=== PATIENT | female | born 1990 | race Caucasian/White ===

== ENCOUNTER 2018-10-03 12:49 | Emergency (ER) | payer MEDICAID, SELFPAY ==
[2018-10-03 13:01] VITALS: BP 138/91; PULSE 90; RESP 16; TEMP 36.6; O2SAT 98
--- NOTE | 2018-10-03 13:53 | W.ED.GENAD ---
Discharge Plan Disposition Patient Disposition: HOME Condition: Good Discharge Details Chief Complaint: DentalOral Clinical Impression: Abscess, periapical Primary Care Provider: Arnel Stewart ED Provider: Mike Yang Home Meds and New Rx's Prescriptions: New clindamycin HCl 150 mg capsule 450 mg PO TID 10 Days Qty: 90 RF: 0 acetaminophen [Mapap Extra Strength] 500 MG tablet 1,000 mg PO Q6H 5 Days Qty: 60 RF: 0 ibuprofen [Motrin IB] 200 MG tablet 600 mg PO Q6H 5 Days Qty: 60 RF: 0 Continued hydrocodone-acetaminophen 10-325 mg Tablet 1 tab PO Q4H PRN PRNRF: 0 Discontinued levofloxacin 750 mg Tablet 1 mg QDAY RF: 0 amoxicillin-pot clavulanate 875-125 mg Tablet 1 tab BID RF: 0 Discharge Instructions Instructions: Dental Abscess (ED) Additional Instructions: You had a notable dental abscess. There is no signs of airway compromise at this time. Please continue to try to squeeze the pus out of that area as much as possible. It is imperative that the infected teeth are removed. Please use the dental list to find an appropriate dentist or surgeon. Please stop taking the Augmentin and the levofloxacin and start taking clindamycin instead. Please take the Tylenol and Motrin as directed, however do not take the Tylenol when you take the Greene as they both have Tylenol in them. If you notice any worsening of your symptoms, or any new symptoms such as vomiting, diarrhea, fever, chills, shortness of breath, chest pain, numbness, weakness, or fainting , please return immediately to the emergency department for reevaluation. Please follow up with your primary care provider as soon as possible for reassessment and reevaluation. As always, it was a pleasure participating in your medical care today. Referrals: Arnel Stewart [Primary Care Provider] - Discharge Data Discharge Date/Time-TO BE ENTERED AT DEPARTURE: 10/03/18 14:06 Medical Decision Making This is a pleasant 28-year-old female who presents for right upper frontal dental pain for the last few days. She was initially seen at [facility] where she was diagnosed with a tooth infection, given Augmentin discharged home. She saw her PCP yesterday and was given additional Levaquin in addition to the Augmentin, given Greene's for pain control, recommended outpatient CT scan to evaluate her sinuses. She presents today with continued pain and continued symptoms of swelling in the front upper dental area. Exam demonstrates notable periapical abscess with fluctuance. 18-gauge needle was used to incise and drain the area, and notable amount of purulent drainage was removed, patient had significant improvement of her pain after this. Recommend continued Tylenol and Motrin, Greene only as needed. Will increase her antibiotics to clindamycin, and recommend stopping the other antibiotics. We did give a dental sheet for call recommendations for local dentist and oral surgeons. We discussed red flags for which to return. We will send cultures for the abscess. I have extensively reviewed the treatment plan and discharge instructions with the patient and their family. I have addressed all patient concerns at this time. The patient and family was made aware of what symptoms to monitor for that would warrant a return to the emergency department. Discussed the plan with the patient and family, they demonstrate verbal understanding and agreement with our assessment and plan at this time. HPI General Date/Time Provider Initiated Documentation: 10/03/18 12:57. HPI Narrative: This is a 28-year-old female who presents today for evaluation of swelling around her right upper teeth. Patient states that few days ago she was seen at [facility] where she was diagnosed with a dental infection, started on Augmentin, and discharged home. She was subsequently seen by her PCP who was concerned that the infections may be coming from her sinuses and added Levaquin and recommended eventual CT scan of her sinuses. He presents today for continued pain and swelling around her front upper teeth. She has notably poor dentition, but has not seen a dentist before. She denies any drainage or discharge. She denies any fever or chills. She denies any severe difficulty swallowing. She denies any headache or neck pain. She has no other complaints at this time. She has been taking the antibiotics as directed. Related Data Home Medications Medication Instructions Recorded Confirmed acetaminophen [Mapap Extra 1,000 mg PO Q6H 5 Days #60 tab 10/03/18 Strength] clindamycin HCl 450 mg PO TID 10 Days #90 cap 10/03/18 hydrocodone-acetaminophen 1 tab PO Q4H PRN PRN 10/03/18 10/03/18 ibuprofen [Motrin Ib] 600 mg PO Q6H 5 Days #60 tab 10/03/18 Previous Rx's Medication Instructions Recorded acetaminophen [Mapap Extra 1,000 mg PO Q6H 5 Days #60 tab 10/03/18 Strength] clindamycin HCl 450 mg PO TID 10 Days #90 cap 10/03/18 ibuprofen [Motrin Ib] 600 mg PO Q6H 5 Days #60 tab 10/03/18 Allergies Allergy/AdvReac Type Severity Reaction Status Date / Time No Known Allergies Allergy Unverified 12/26/13 14:53 General Stated Complaint: DentalOral STEPHANY: 4 Review of Systems Review of Systems All systems reviewed & are unremarkable except as noted in HPI and below PFSH Social History Smoking/Tobacco Use Status: Current every day Tobacco Type: cigarettes Alcohol Intake: current Alcohol Intake frequency: holidays/special occasions only Drug use: Never Do you feel safe at home: Yes Do you feel safe in your relationship?: Yes Exam Narrative Exam Narrative: 1.Const: Well-nourished, Well-developed, appearing stated age 2.Eyes: PERRL, no conjunctival injection, and symmetrical lids. 3.ENT: Atraumatic external nose and ears. Moist MM. Neck: Symmetric, trachea midline, No thyromegaly. Patient demonstrates good movement of cervical neck. There is no nuchal rigidity, no nuchal tenderness. Patient is able to flex the neck without any difficulty or significant pain. Negative Kernig's and Brudzinski sign. Posterior oropharynx demonstrates no evidence of swelling or edema, uvula normal, no tonsillar exudates or tonsillar enlargement. No signs of airway compromise. Dentition shows notably poor dentition, multiple dental caries and old fractured teeth. Over the right front upper gingival region there is evidence of notable swelling and fluctuance concerning for periapical abscess. No drainage or discharge at this time. 4.CVS: +S1/S2, No murmurs or gallops. Peripheral pulses 2+ and equal in all extremities. Brisk capillary refill in all extremities. 5.RESP: Unlabored respiratory effort. Clear to auscultation bilaterally. No wheezes rales or rhonchi 6.GI: Soft, Nontender/Nondistended, No hepatosplenomegaly. No guarding or rebound. 7.MSK: Normocephalic/Atraumatic, Extremities w/o deformity or ttp No cyanosis or clubbing, Normal movement of all extremities 8.Skin: Warm, Dry. No rashes or lesions. 9.Neuro: inside solar sales consultant II-XII grossly intact. Sensation grossly intact, no focal neurologic deficits. 10.Psych: (AAO) x3. Appropriate mood and affect Course Vital Signs Temperature 36.6 C 10/03/18 13:01 Pulse 90 10/03/18 13:01 Respiratory Rate 16 10/03/18 13:01 Blood Pressure 138/91 H 10/03/18 13:01 Pulse Oximetry 98 10/03/18 13:01 Temperature 36.6 C 10/03/18 13:01 Temperature Source Temporal Artery Scan 10/03/18 13:01 Pulse 90 10/03/18 13:01 Respiratory Rate 16 10/03/18 13:01 Respiratory Effort Non-Labored 10/03/18 13:07 Blood Pressure 138/91 H 10/03/18 13:01 Blood Pressure Position Sitting 10/03/18 13:01 Pulse Oximetry 98 10/03/18 13:01 Oxygen Delivery Method Room Air 10/03/18 13:01 Oxygen Flow Rate 0 10/03/18 13:01
== END 2018-10-03 14:06 | disposition home or self-care (01) ==
PROVIDERS: Emergency Provider Student in an Organized Health Care Education/Training Program; PCP Family Medicine
DX: R22.0 Localized swelling, mass and lump, head (principal); K04.7 Periapical abscess without sinus
CPT/HCPCS: 41800; 87070; 87205